=== PATIENT | female | born 1935 | race Caucasian/White ===

== ENCOUNTER 2016-11-23 02:02 | Emergency (ER) | payer MEDICARE ==
[~2016-11-23] VITALS: Ht 167.6 cm; Wt 61.2 kg
[2016-11-23 02:02] VITALS: BP_SYST 0
--- NOTE | 2016-11-23 02:02 | NUR ---
0200- Pt placed in bed 1, hooked to express clerk
--- NOTE | 2016-11-23 02:02 | NUR ---
ACLS started, see code blue sheet for meds given
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
[2016-11-23 02:12] VITALS: BP_SYST 0
--- NOTE | 2016-11-23 02:12 | NUR ---
Code ended, pt was pronounced by Dr. Ibrahim
--- NOTE | 2016-11-23 02:45 | NUR ---
Dr Ibrahim talked to pt's daughter,Yulisa Anthony, discussed details of the resuscitation and her , with clear understanding.
--- NOTE | 2016-11-23 02:55 | NUR ---
Pt's daughter Yulisa at bedside
--- NOTE | 2016-11-23 02:55 | NUR ---
Pt's daughter has no mortuary of choice at this time and wanted us to call [facility] as suggested
--- NOTE | 2016-11-23 03:03 | NUR ---
Called [facility] at [phone], spoke with Faith to report of patient. She closed the case with number [phone]
--- NOTE | 2016-11-23 03:08 | NUR ---
Called [facility] office at [phone] to report of patient, spoke with Ritesh, who released body to [facility]
--- NOTE | 2016-11-23 03:15 | NUR ---
Post mortem care done by ER staff
--- NOTE | 2016-11-23 03:30 | NUR ---
Pt's daughter Yulisa and another family member at bedside
--- NOTE | 2016-11-23 04:00 | NUR ---
Pt body was picked up by [facility] ([address], [place], [place]), by denial management representative Migue Hernandez
== END 2016-11-23 02:12 | disposition expired ==
LOC: SED 02:02
DX: I46.9 Cardiac arrest, cause unspecified (principal); I48.91 Unspecified atrial fibrillation; I50.9 Heart failure, unspecified; C34.90 Malignant neoplasm of unspecified part of unspecified bronchus or lung; Z96.641 Presence of right artificial hip joint
CPT/HCPCS: 99285